=== PATIENT | male | born 1950 | race Caucasian/White ===

== ENCOUNTER 2018-11-08 02:38 | Emergency (ER) | payer MEDICARE, OTHER ==
[~2018-11-08] VITALS: Ht 175.3 cm; Wt 83.9 kg
[~2018-11-08 02:38] MED LIST: AMIT25 PO; AMLO10 PO; BISO5 PO; ESOM20; HYDCHL25 PO; LISINOPRIL; OMEP20ER PO; POTCHL10ER PO; ROSU10TA PO; Zofran4 MG PO
[2018-11-08] MEDS ORDERED: Prinivil10 MG PO (04:27)
[2018-11-08] MEDS ORDERED: ACET500 PO (04:28)
[2018-11-08] MEDS ORDERED: CO Q10100 MG PO (04:28)
[2018-11-08] MEDS ORDERED: NAPR220 PO (04:29)
[2018-11-08 05:10] LABS: BASOPHILS ABSOLUTE AUTO 0.06 K/mm3 (0.00-0.23); BASOPHILS PERCENT AUTO 1 % (0-2); EOSINOPHILS ABSOLUTE AUTO 0.03 K/mm3 (0.00-0.68); EOSINOPHILS PERCENT AUTO 0 % (0-6); Hematocrit 44.1 % (37.0-53.0); Hemoglobin 15.2 g/dL (13.5-17.5); IMMATURE GRAN ABSOLUTE AUTO 0.07 K/mm3 (0.00-0.10); IMMATURE GRAN PERCENT AUTO 1 % (0-1); LYMPHOCYTES ABSOLUTE AUTO 0.88 K/mm3 (0.84-5.20); LYMPHOCYTES PERCENT AUTO 8 % (21-46); MONOCYTES ABSOLUTE AUTO 0.81 K/mm3 (0.16-1.47); MONOCYTES PERCENT AUTO 7 % (4-13); Mean Corpuscular HGB 31.1 pg (26.0-34.0); Mean Corpuscular HGB Conc 34.5 g/dL (31.5-36.5); Mean Corpuscular Volume 90 fL (80-100); NEUTROPHILS ABSOLUTE AUTO 9.46 K/mm3 (1.96-9.15); NEUTROPHILS PERCENT AUTO 84 % (41-73); Platelet Count 196 K/mm3 (150-400); RDW Coefficient Variation 13.4 % (11.7-14.2); RDW Standard Deviation 43.9 fL (35.1-46.3); Red Blood Cell Count 4.88 M/mm3 (4.30-5.90); White Blood Cell Count 11.31 K/mm3 (4.00-11.30)
[2018-11-08 05:34] LABS: Alanine Aminotransfer (ALT/SGP 89 U/L (12-78); Albumin, Blood 3.8 g/dL (3.4-5.0); Albumin/Globulin Ratio 1.1 (0.8-1.8); Alk Phos 58 U/L (50-136); Anion Gap 7 mmol/L (6-16); Aspartate Aminotrans (AST/SGOT 62 U/L (12-37); Bilirubin, Total 0.4 mg/dL (0.1-1.0); Blood Urea Nitrogen 16 mg/dL (8-24); Bun/Creatinine Ratio 14.7 (12.0-20.0); CO2, Blood 30 mmol/L (21-32); Calcium, Blood 10.2 mg/dL (8.5-10.1); Chloride, Blood 99 mmol/L (98-108); Creatinine, Blood 1.09 mg/dL (0.60-1.20); Globulin, Blood 3.5 g/dL (2.2-4.0); Glomerular Filtration Rate >60 (60-); Glucose, Blood 119 mg/dL (70-99); Potassium, Blood 3.9 mmol/L (3.5-5.5); Sodium, Blood 136 mmol/L (136-145); Total Protein, Blood 7.3 g/dL (6.4-8.2)
[2018-11-08 06:53] LABS: Source, Urine Clean Catch
[2018-11-08 06:57] LABS: Appearance, Urine Clear (Clear); Bilirubin, Urine Neg (Neg); Blood, Urine 1+ (Neg); Color, Urine Yellow (P-Yellow); Glucose Qualitative, Urine Neg (Neg); Ketones, Urine Neg (Neg); Leukocyte Esterase, Urine Neg (Neg); Nitrite, Urine Neg (Neg); Protein, Urine 1+ (Neg); Urobilinogen, Urine NORM (Normal)
[2018-11-08 07:22] LABS: Bacteria Rare /hpf; Red Blood Cells, Urine 0-2 /hpf (0-2); Squamous Epithelial Cells Not Seen /hpf (Few); White Blood Cells, Urine 0-2 /hpf (0-5)
== END 2018-11-08 08:05 | disposition home or self-care (01) ==
LOC: ER 02:38
PROVIDERS: Emergency Medicine
DX: R50.9 Fever, unspecified (principal); Z88.2 Allergy status to sulfonamides; Z79.899 Other long term (current) drug therapy; I10 Essential (primary) hypertension; K21.9 Gastro-esophageal reflux disease without esophagitis
CPT/HCPCS: 36415; 71046; 72193; 80053; 81001; 85025; 99284-25; Q9967

== ENCOUNTER 2024-05-10 09:17 | Day surgery (SDC) | payer MEDICARE, OTHER ==
[~2024-05-10] VITALS: Ht 175.3 cm; Wt 84.9 kg
[~2024-05-10 09:17] MED LIST changes: +ACET500 PO; +Balanced Salt Epinephrine Irrigation Solution 500 mL IR SCH; +CO Q10100 MG PO; +Lidocaine HCl/Pf 1% 5 ML VIAL XX SCH; +Moxifloxacin HCL 0.5 MG/0.1 ML 0.4MLSYR LEFTEYE SCH; +NAPR220 PO; +PHENYLEPHRINE\\TROPICAMIDE\\TETRACAINE OPHTHALMIC DILATING SOLN LEFTEYE PRN; +Povidone-Iodine 450 DROP/30 ML Solution LEFTEYE SCH; +Povidone-Iodine 450 DROP/30 ML Solution ONE; +Prinivil10 MG PO; +Tetracaine HCl/Pf 0.5% Opth Soln 4 ml ONE; +Triamcinolone Inj Susp 40 MG / ML 1ML Vial INJ SCH; +Triamcinolone Inj Susp 40 MG / ML 1ML Vial ONE
[2024-05-10] MEDS ORDERED: Diazepam 5 MG Tab ONE (10:00)
[2024-05-10] MEDS ORDERED: TRAM50 (10:11)
[2024-05-10] MEDS ORDERED: LOSARTAN 100 MG (10:12)
--- NOTE | 2024-05-10 10:52 | NUR ---
05/10/24 1052 Andreia Francisco 5 MG PO GIVEN AT 1007 PER ORDERS
[2024-05-10] MEDS ORDERED: Tetracaine HCl 0.5% Opth Soln 15 ml ONE (11:33)
[2024-05-10 13:39] VITALS: BP 152/84
== END 2024-05-10 11:39 | disposition home or self-care (01) ==
LOC: ORSCSDS 09:17
PROVIDERS: Ophthalmology
PROC: 08RK3JZ Replacement of Left Lens with Synthetic Substitute, Percutaneous Approach (ICD-10-PCS; principal; 2024-05-10 11:00)
DX: H25.813 Combined forms of age-related cataract, bilateral (principal); J45.909 Unspecified asthma, uncomplicated; H52.202 Unspecified astigmatism, left eye; I10 Essential (primary) hypertension; Z79.899 Other long term (current) drug therapy
CPT/HCPCS: A9270; J3301; V2632

== ENCOUNTER 2024-05-31 08:09 | Day surgery (SDC) | payer MEDICARE, OTHER ==
[~2024-05-31] VITALS: Ht 172.7 cm; Wt 85.4 kg
[~2024-05-31 08:09] MED LIST changes: +LOSARTAN 100 MG; -Moxifloxacin HCL 0.5 MG/0.1 ML 0.4MLSYR LEFTEYE SCH; +Moxifloxacin HCL 0.5 MG/0.1 ML 0.4MLSYR RIGHTEYE SCH; -PHENYLEPHRINE\\TROPICAMIDE\\TETRACAINE OPHTHALMIC DILATING SOLN LEFTEYE PRN; +PHENYLEPHRINE\\TROPICAMIDE\\TETRACAINE OPHTHALMIC DILATING SOLN RIGHTEYE PRN; -Povidone-Iodine 450 DROP/30 ML Solution LEFTEYE SCH; +Povidone-Iodine 450 DROP/30 ML Solution RIGHTEYE SCH; +TRAM50
[2024-05-31] MEDS ORDERED: Diazepam 5 MG Tab ONE (08:22)
[2024-05-31] MEDS ORDERED: Diazepam 2 MG Tab ONE (08:22)
--- NOTE | 2024-05-31 08:36 | NUR ---
05/31/24 0836 Yuly Powell VALIUM 7MG AT 0832. TETRACAINE AT 0833 PLEDGET AT 0834
[2024-05-31 09:30] VITALS: BP 119/75
== END 2024-05-31 09:38 | disposition home or self-care (01) ==
LOC: ORSCSDS 08:09
PROVIDERS: Ophthalmology
PROC: 08RJ3JZ Replacement of Right Lens with Synthetic Substitute, Percutaneous Approach (ICD-10-PCS; principal; 2024-05-31 09:30)
DX: H25.811 Combined forms of age-related cataract, right eye (principal); Z96.1 Presence of intraocular lens; I10 Essential (primary) hypertension; J45.909 Unspecified asthma, uncomplicated; K21.9 Gastro-esophageal reflux disease without esophagitis; Z79.899 Other long term (current) drug therapy
CPT/HCPCS: A9270; J3301; V2632